=== PATIENT | male | born 1970 | race Asian ===

== ENCOUNTER 2022-02-09 12:49 | Emergency (ER) | payer OTHER ==
[~2022-02-09] VITALS: Ht 170.2 cm; Wt 89.0 kg
[2022-02-09 13:26] LABS: BASOPHILS % (AUTO) 1.4 % (0.0-2.0); EOSINOPHILS % (AUTO) 0.5 % (1.0-6.0); HEMATOCRIT 44.2 % (41-53); HEMOGLOBIN 14.8 g/dL (13.5-17.5); LYMPHOCYTES # (AUTO) 1.8 K/uL (1.0-4.8); LYMPHOCYTES % (AUTO) 22.6 % (22.0-44.0); MEAN CORPUSCULAR HEMOGLOBIN 31.9 pg (26.0-34.0); MEAN CORPUSCULAR HGB CONC 33.4 G/dL (31.0-37.0); MEAN CORPUSCULAR VOLUME 95 fL (80-100); MONOCYTES # (AUTO) 0.8 K/uL (0.1-1.0); MONOCYTES % (AUTO) 10.6 % (2.0-9.0); NEUTROPHILS % (AUTO) 64.9 % (40.0-70.0); PLATELET COUNT (AUTO) 219 K/uL (150-450); RED BLOOD CELL COUNT(AUTO) 4.63 MIL/uL (4.50-5.90); RED CELL DISTRIBUTION WIDTH 16.1 % (11.5-14.5)
[2022-02-09 13:41] LABS: INR 1.5 (0.9-1.1); PROTHROMBIN TIME 15.6 SEC (9.4-11.6)
[2022-02-09] MEDS: ASPIRIN 325 MG TABLET PO ONE (13:43)
[2022-02-09 13:44] LABS: CALCIUM, TOTAL 8.9 mg/dL (8.8-10.5); CREATININE 2.1 mg/dL (0.60-1.30); POTASSIUM 4.8 mmol/L (3.5-5.1)
[2022-02-09 13:55] LABS: COVID AG,FIA SOURCE NASOPHARYNGEAL
[2022-02-09 14:10] LABS: ALBUMIN 3.4 g/dL (3.4-5.0); BILIRUBIN,TOTAL 1.6 mg/dL (0.1-1.0); TOTAL PROTEIN, SERUM 8.4 g/dL (6.4-8.2)
[2022-02-09] MEDS ORDERED: 0.9% SODIUM CHLORIDE 10 ML SYRINGE IVP PRN (14:45)
[2022-02-09] MEDS ORDERED: ACETAMINOPHEN 325 MG TABLET PO PRN (14:45)
[2022-02-09] MEDS ORDERED: ONDANSETRON HCL 4 MG/2 ML VIAL IVP PRN (14:45)
[2022-02-09] MEDS ORDERED: BISACODYL 10 MG RECTAL RECTAL SUPPOSITORY PR PRN (14:45)
[2022-02-09] MEDS ORDERED: DOCUSATE SODIUM 100 MG CAPSULE PO PRN (14:45)
[2022-02-09] MEDS ORDERED: METO-558 PO (14:46)
[2022-02-09] MEDS ORDERED: LOSA-381 PO (14:46)
[2022-02-09] MEDS ORDERED: BUME1TAB34 PO (14:46)
[2022-02-09] MEDS ORDERED: APIX5TAB PO (14:46)
[2022-02-09] MEDS ORDERED: SPIR-37 PO (14:46)
[2022-02-09] MEDS ORDERED: ATOR40TA28 PO (14:46)
[2022-02-09] MEDS ORDERED: ALLO-97 PO (14:46)
[2022-02-09] MEDS ORDERED: OMEP20 PO (14:46)
[2022-02-09] MEDS ORDERED: COLC0.6T73 PO (14:46)
[2022-02-09] MEDS: BUMETANIDE 0.25 MG/ML 4 ML VIAL IVP ONE (15:16)
[2022-02-09 19:17] VITALS: BP 105/75
[2022-02-09] MEDS ORDERED: APIXABAN 2.5 MG TABLET PO SCH (21:00)
[2022-02-10] MEDS ORDERED: ALLOPURINOL 100 MG TABLET PO SCH (09:00)
[2022-02-10] MEDS ORDERED: ATORVASTATIN CALCIUM 40 MG TABLET PO SCH (09:00)
[2022-02-10] MEDS ORDERED: ASPIRIN 81 MG CHEWABLE TABLET PO SCH (09:00)
[2022-02-10] MEDS ORDERED: METOPROLOL SUCCINATE 50 MG ER TABLET PO SCH (09:00)
[2022-02-10] MEDS ORDERED: PANTOPRAZOLE SODIUM 40 MG DR TABLET PO SCH (09:00)
== END 2022-02-10 06:30 | disposition left against medical advice (07) ==
LOC: EMS 12:51
DX: I11.0 Hypertensive heart disease with heart failure (principal); I50.9 Heart failure, unspecified; E78.5 Hyperlipidemia, unspecified; M10.9 Gout, unspecified; F15.10 Other stimulant abuse, uncomplicated; I42.8 Other cardiomyopathies; F17.210 Nicotine dependence, cigarettes, uncomplicated; Z20.822 Contact with and (suspected) exposure to COVID-19
CPT/HCPCS: 36415; 71045; 80053; 82550; 83735; 83880; 84484; 85025; 85610; 85730; 86850; 86900; 86901; 87426; 93005; 93306; 96374; 99291; G0480; J3490